=== PATIENT | female | born 1965 | race Caucasian/White ===

== ENCOUNTER 2016-05-24 12:26 | Emergency (ER) | payer MEDICAID ==
[~2016-05-24] VITALS: Ht 167.6 cm; Wt 100.0 kg
[2016-05-24] MEDS ORDERED: ONDANSETRON (ODT) 4 MG TAB ODT STA (12:39)
--- NOTE | 2016-05-24 12:45 | ERA ---
ER Documentation Chief Complaint Date/Time DATE: 05/24/16 TIME: 12:38 Chief Complaint Right wrist and right leg pain HPI The patient is a 50-year-old female, presenting to the ER because he had a mechanical fall on the sidewalk prior to arrival. She complains of right leg and right wrist pain. She denies any head trauma, neck pain, chest pain. She complains of minimal abdominal pain when she fell because she hit the ground. She denies nausea, vomiting, dysuria, diarrhea, constipation. She does not smoke, drink Past medical history: Hypertension, asthma Past surgical history: None ROS All systems reviewed and are negative except as per history of present illness. Medications Home Meds Active Scripts Ibuprofen* (Motrin*) 600 Mg Tab, 600 MG PO Q6H Y for PAIN AND OR ELEVATED TEMP, #30 TAB Prov:LEONEL CLIFTON MD 05/24/16 Hydrocodone/Acetaminophen ([place] 5-325 Tablet) 1 Each Tablet, 1 TAB PO Q6H Y for PAIN, #10 TAB Prov:LEONEL CLIFTON MD 05/24/16 Allergies Allergies: Coded Allergies: No Known Allergy (Unverified , 05/24/16) Physical Exam Vitals Vital Signs Date Time Temp Pulse Resp B/P Pulse Ox O2 Delivery O2 Flow Rate FiO2 05/24/16 12:53 98.1 101 20 179/89 100 Physical Exam Const: No acute distress. Head: Atraumatic. Eyes: Normal Conjunctiva. ENT: Normal External Ears, Nose and Mouth. Neck: Full range of motion. No meningismus. Resp: Clear to auscultation bilaterally. Cardio: Regular rate and rhythm, no murmurs. Abd: Soft, non distended, normal bowel sounds, non tender. Skin: No petechiae or rashes. Back: No midline or flank tenderness. Ext: Right wrist and right tibia with moderate tenderness, minimal edema, no laceration, no ecchymosis. Right ankle and right foot with vague tenderness Neur: Awake and alert. No focal deficit Psych: Normal Mood and Affect. Results 24 hrs Current Medications Medications (Trade) Dose Ordered Sig/Breanna Route PRN Reason Start Time Stop Time Status Last Admin Dose Admin Acetaminophen/ Hydrocodone Bitart ([place] (10/325)) 1 tab ONCE ONCE PO 05/24/16 13:00 05/24/16 13:01 DC 05/24/16 13:05 Ondansetron HCl (Zofran Odt) 4 mg ONCE STAT ODT 05/24/16 12:39 05/24/16 13:00 DC 05/24/16 13:04 Procedures/MDM [place] [address] Radiology Main Line: [phone] DIAGNOSTIC IMAGING REPORT Patient: YU MARIE : 1965 Age: 50 Sex: F MR #: [id number] DOS: 05/24/16 1241 Ordering MD: LEONEL CLIFTON MD Location: E/R Room/Bed: PROCEDURE: XR Wrist. CLINICAL INDICATION: pain TECHNIQUE: AP, lateral, navicular and oblique views of the right wrist were performed. COMPARISON: No prior studies are available for comparison. FINDINGS: There is no evidence of acute fracture or dislocation. Bony mineralization is normal. There are no focal bony blastic or lytic lesions. Small bone cyst involving the capitate. No evidence of erosions. The soft tissues are unremarkable. IMPRESSION: No evidence of acute fracture dislocation or erosion. RPTAT:AAJJ Physician Karri Date Time Electronically viewed and signed by Nikita Purdy Physician on 05/24/2016 14:04 BM/ CC: LEONEL CLIFTON MD [place] [address] Radiology Main Line: [phone] DIAGNOSTIC IMAGING REPORT Patient: YU MARIE : 1965 Age: 50 Sex: F MR #: [id number] DOS: 05/24/16 1241 Ordering MD: LEONEL CLIFTON MD Location: E/R Room/Bed: PROCEDURE: Right leg series CLINICAL INDICATION: Pain TECHNIQUE: AP and lateral views of the right leg were obtained COMPARISON: No prior studies are available for comparison. FINDINGS: There is no evidence of acute fractures or dislocations. The bony mineralization is normal. No focal bony blastic or lytic lesions. The soft tissues are unremarkable. IMPRESSION: No evidence acute fractures or dislocations. RPTAT:AAJJ Nikita Purdy, Physician Date Time Electronically viewed and signed by Physician Karri on 05/24/2016 14:05 BM/ CC: LEONEL CLIFTON MD [place] [address] Radiology Main Line: [phone] DIAGNOSTIC IMAGING REPORT Patient: YU MARIE : 1965 Age: 50 Sex: F MR #: [id number] DOS: 05/24/16 1241 Ordering MD: LEONEL CLIFTON MD Location: E/R Room/Bed: PROCEDURE: Right form series CLINICAL INDICATION: pain TECHNIQUE: AP and lateral views of the right forearm were obtained. COMPARISON: No prior studies are available for comparison. FINDINGS: There is no evidence of acute fractures or dislocations. The bony mineralization is normal. No focal bony blastic or lytic lesions. The soft tissues are unremarkable. IMPRESSION: Negative right forearm series. RPTAT:AAJJ Nikita Purdy Physician Date Time Electronically viewed and signed by Physician Karri on 05/24/2016 14:05 BM/ CC: LEONEL CLIFTON MD [place] [address] Radiology Main Line: [phone] DIAGNOSTIC IMAGING REPORT Patient: YU MARIE : 1965 Age: 50 Sex: F MR #: [id number] DOS: 05/24/16 1241 Ordering MD: LEONEL CLIFTON MD Location: E/R Room/Bed: PROCEDURE: XR right Foot. CLINICAL INDICATION: Pain TECHNIQUE: AP, lateral and oblique views of the right foot was obtained. COMPARISON: None. FINDINGS: There is a moderate to hallux valgus deformity. The elongated calcification in the soft tissue are along the medial distal right first metatarsal bone likely dystrophic calcification from previous trauma. There are no acute fractures or dislocations or erosions. No focal bony blastic or lytic lesions. Small posterior calcaneal spur. Soft tissues are unremarkable. IMPRESSION: 1. Moderate halgus valgus deformity. 2. Dystrophic calcification along the medial distal right first metatarsal bone. 3. No evidence acute fracture dislocation or joint effusion. 4. Calcaneal spur. RPTAT:AAJJ Physician Karri Date Time Electronically viewed and signed by Physician Karri on 05/24/2016 14:08 BM/ CC: LEONEL CLIFTON MD [place] [address] Radiology Main Line: [phone] DIAGNOSTIC IMAGING REPORT Patient: YU MARIE : 1965 Age: 50 Sex: F MR #: [id number] DOS: 05/24/16 [facility] Ordering MD: LEONEL CLIFTON MD Location: E/R Room/Bed: PROCEDURE: XR Chest. CLINICAL INDICATION: pain TECHNIQUE: Single portable view of the chest was obtained COMPARISON: None FINDINGS: The patient has a poor inspiration. The heart is within normal limits in size allowing for technique. Negative for pulmonary vascular congestion acute lung consolidation pleural effusions and pneumothorax. IMPRESSION: No evidence of congestive heart failure or pneumonia. RPTAT:AAJJ Physician Karri Date Time Electronically viewed and signed by Physician Karri on 05/24/2016 14:08 BM/ CC: LEONEL CLIFTON MD [place] [address] Radiology Main Line: [phone] DIAGNOSTIC IMAGING REPORT Patient: YU MARIE : 1965 Age: 50 Sex: F MR #: [id number] DOS: 05/24/16 1241 Ordering MD: LEONEL CLIFTON MD Location: E/R Room/Bed: PROCEDURE: XR Right Ankle. CLINICAL INDICATION: pain TECHNIQUE: AP, oblique and lateral views of the right ankle were performed. COMPARISON: None. FINDINGS: No evidence of acute fracture or dislocations. No focal bony blastic or lytic lesions. Soft tissues are unremarkable. Small posterior calcaneal spur. IMPRESSION: Right calcaneal spur without evidence of acute fracture dislocation or erosions. RPTAT:AAJJ Physician Karri Date Time Electronically viewed and signed by Physician Karri on 05/24/2016 14:06 BM/ CC: LEONEL CLIFTON MD MEDICAL MAKING DECISION: The patient is a 50-year-old female, presenting with acute right wrist and right leg injury. She was treated with [place], Zofran ODT for pain and nausea, Ranjit wrap to the right ankle and right wrist Velcro and crutches. The differential diagnoses considered include but are not limited to fracture, internal derangement, sprain, contusion Departure Diagnosis: Primary Impression: Wrist injury Additional Impression: Leg injury Condition: Good Comments I discussed the findings with the patient. I advised the patient to follow-up with the primary physician in about 1-2 days, sooner if needed and return if any concern. She was advised that if the pain is persistent, she would need to have MRI for further evaluation. He was discharged with Andrea and LEONEL Martin MD May 24, 2016 12:45
[2016-05-24 12:53] VITALS: Ht 167.6 cm; Wt 100.0 kg
[2016-05-24] MEDS ORDERED: HYDROCODONE/APAP (10/325) TAB PO ONE (13:00)
--- NOTE | 2016-05-24 14:04 | RADRPT ---
PROCEDURE: XR Wrist. CLINICAL INDICATION: pain TECHNIQUE: AP, lateral, navicular and oblique views of the right wrist were performed. COMPARISON: No prior studies are available for comparison. FINDINGS: There is no evidence of acute fracture or dislocation. Bony mineralization is normal. There are no focal bony blastic or lytic lesions. Small bone cyst involving the capitate. No evidence of erosi ons. The soft tissues are unremarkable. IMPRESSION: No evidence of acute fracture dislocation or erosion. RPTAT:AAJJ Physician Karri Date Time Electronically viewed and signed by Nikita Purdy Physician on 05/24/2016 14:04 BM/
--- NOTE | 2016-05-24 14:05 | RADRPT ---
PROCEDURE: Right leg series CLINICAL INDICATION: Pain TECHNIQUE: AP and lateral views of the right leg were obtained COMPARISON: No prior studies are available for comparison. FINDINGS: There is no evidence of acute fractures or dislocations. The bony mineralization is normal. No foc al bony blastic or lytic lesions. The soft tissues are unremarkable. IMPRESSION: No evidence acute fractures or dislocations. RPTAT:AAJJ Physician Karri Date Time Electronically viewed and signed by Nikita Purdy Physician on 05/24/2016 14:05 /
--- NOTE | 2016-05-24 14:05 | RADRPT ---
PROCEDURE: Right form series CLINICAL INDICATION: pain TECHNIQUE: AP and lateral views of the right forearm were obtained. COMPARISON: No prior studies are available for comparison. FINDINGS: There is no evidence of acute fractures or dislocations. The bony mineralization is normal. No foc al bony blastic or lytic lesions. The soft tissues are unremarkable. IMPRESSION: Negative right forearm series. RPTAT:AAJJ Physician Karri Date Time Electronically viewed and signed by Nikita Purdy Physician on 05/24/2016 14:05 /
--- NOTE | 2016-05-24 14:06 | RADRPT ---
PROCEDURE: XR Right Ankle. CLINICAL INDICATION: pain TECHNIQUE: AP, oblique and lateral views of the right ankle were performed. COMPARISON: None. FINDINGS: No evidence of acute fracture or dislocations. No focal bony blastic or lytic lesions. Soft tissue s are unremarkable. Small posterior calcaneal spur. IMPRESSION: Right calcaneal spur without evidence of acute fracture dislocation or erosions. RPTAT:AAJJ Physician Karri Date Time Electronically viewed and signed by Nikita Purdy Physician on 05/24/2016 14:06 /
--- NOTE | 2016-05-24 14:08 | RADRPT ---
PROCEDURE: XR right Foot. CLINICAL INDICATION: Pain TECHNIQUE: AP, lateral and oblique views of the right foot was obtained. COMPARISON: None. FINDINGS: There is a moderate to hallux valgus deformity. The elongated calcification in the soft tissue are along the medial distal right first metatarsal bone likely dystrophic calcification from previous tr auma. There are no acute fractures or dislocations or erosions. No focal bony blastic or lytic les ions. Small posterior calcaneal spur. Soft tissues are unremarkable. IMPRESSION: 1. Moderate halgus valgus deformity. 2. Dystrophic calcification along the medial distal right first metatarsal bone. 3. No evidence acute fracture dislocation or joint effusion. 4. Calcaneal spur. RPTAT:AAJJ Physician Karri Date Time Electronically viewed and signed by Nikita Purdy Physician on 05/24/2016 14:08 /
--- NOTE | 2016-05-24 14:08 | RADRPT ---
PROCEDURE: XR Chest. CLINICAL INDICATION: pain TECHNIQUE: Single portable view of the chest was obtained COMPARISON: None FINDINGS: The patient has a poor inspiration. The heart is within normal limits in size allowing for techniqu e. Negative for pulmonary vascular congestion acute lung consolidation pleural effusions and pneumo thorax. IMPRESSION: No evidence of congestive heart failure or pneumonia. RPTAT:AAJJ Physician Karri Date Time Electronically viewed and signed by Nikita Purdy Physician on 05/24/2016 14:08 /
[2016-05-24] MEDS ORDERED: HYDR-906 PO (14:13)
[2016-05-24] MEDS ORDERED: IBUP-1542 PO (14:14)
[2016-05-24 15:11] VITALS: BP 131/78; PULSE 78; RESP 18; TEMP 98
== END 2016-05-24 15:14 | disposition home or self-care (01) ==
LOC: FTE 12:26 → E/R 15:14
DX: S69.91XA Unspecified injury of right wrist, hand and finger(s), initial encounter (principal); I10 Essential (primary) hypertension; S89.91XA Unspecified injury of right lower leg, initial encounter; J45.909 Unspecified asthma, uncomplicated; W10.1XXA Fall (on)(from) sidewalk curb, initial encounter; Y92.480 Sidewalk as the place of occurrence of the external cause
CPT/HCPCS: 29125; 71010; 73090; 73110; 73590; 73610; 73630; Z7502; Z7610

== ENCOUNTER 2016-12-20 12:07 | Emergency (ER) | END 2016-12-20 15:38 | disposition home or self-care (01) | DX: S00.83XA Contusion of other part of head, initial encounter (principal); I10 Essential (primary) hypertension; J45.909 Unspecified asthma, uncomplicated; W01.198A Fall on same level from slipping, tripping and stumbling with subsequent striking against other object, initial encounter; Y92.512 Supermarket, store or market as the place of occurrence of the external cause | CPT/HCPCS: 70450; 70486; 96372; J1885; Z7502 ==